=== PATIENT | female | born 1945 | race Hispanic/Latino ===

== ENCOUNTER 2019-02-21 11:44 | Emergency (ER) | payer MEDICARE ==
[~2019-02-21] VITALS: Ht 165.1 cm; Wt 96.6 kg
[~2019-02-21 11:44] MED LIST: AMIODARONE HCL200 MG PO; ASPIR-LOW81 MG PO; ASPIR-TRIN325 MG PO; ATENOLOL100 MG PO; ATORVASTATIN CA20 MG PO; CETIRIZINE HCL10 MG PO; COZAAR100 MG PO; DIGOXIN250 MCG PO; FAMOTIDINE20 MG PO; FUROSEMIDE40 MG PO; GARLIC1000 MG PO; JANUMET 50-5001 EACH PO; METOPROLOL SUCC50 MG PO; ULTRACET TABLE1 EACH PO
[2019-02-21] MEDS ORDERED: SODIUM CHLORIDE 0.9% 500ML 500 ML IV STA (11:54)
[2019-02-21] MEDS ORDERED: MORPHINE SULFATE INJ 4 MG/ML INJ 1ML IV STA (11:54)
[2019-02-21] MEDS ORDERED: ONDANSETRON HCL INJ 2MG/ML 2ML 2 MG/ML VIAL IV STA (11:54)
[2019-02-21 12:14] LABS: BASOPHILS # (AUTO) 0.1 (0.0-0.1); BASOPHILS % 0.7 % (0.0-1.0); EOSINOPHILS % 0.4 % (0.0-6.0); HEMATOCRIT 37.8 % (34.2-44.1); HEMOGLOBIN 12.4 g/dL (12.0-16.0); LYMPHOCYTES # (AUTO) 0.5 (1.0-3.2); LYMPHOCYTES % 7.2 % (18.0-39.1); MEAN CORPUSCULAR HEMOGLOBIN 29.1 pg (28-32); MEAN CORPUSCULAR HGB CONC 32.8 g/dL (31-35); MEAN CORPUSCULAR VOLUME 88.7 fL (81-99); MONOCYTES # (AUTO) 0.7 (0.2-0.8); MONOCYTES % 10.1 % (4.4-11.3); NEUTROPHILS # (AUTO) 5.6 (2.1-6.9); NEUTROPHILS % 81.2 % (38.7-80.0); PLATELET COUNT 158 x10e3/uL (140-360); RED BLOOD COUNT 4.26 x10e6/uL (3.6-5.1); RED CELL DISTRIBUTION WIDTH 14.7 % (11.7-14.4)
[2019-02-21] MEDS ORDERED: IBUPROFEN 600 MG TAB PO STA (12:15)
[2019-02-21] MEDS ORDERED: ACETAMINOPHEN 325 MG TAB PO ONE (12:15)
[2019-02-21] MEDS ORDERED: IBUPROFEN 600 MG TAB ONE (12:23)
[2019-02-21 12:29] LABS: BILIRUBIN,URINE NEGATIVE (NEGATIVE); CLARITY,URINE SL CLOUDY (CLEAR); COLOR,URINE YELLOW (YELLOW); KETONES,URINE NEGATIVE (NEGATIVE); LEUKOCYTE ESTERASE ,URINE NEGATIVE (NEGATIVE); NITRITE,URINE NEGATIVE (NEGATIVE); PROTEIN,URINE DIPSTICK NEGATIVE (NEGATIVE); URINE UROBILINOGEN 0.2 mg/dL (0.2 - 1)
[2019-02-21 12:39] LABS: ALANINE AMINOTRANSFERASE 30 IU/L (0-55); ALBUMIN 3.8 g/dL (3.5-5.0); ALBUMIN/GLOBULIN RATIO 1.1 (0.8-2.0); ALKALINE PHOSPHATASE 56 IU/L (40-150); BLOOD UREA NITROGEN 17 mg/dL (7-26); BUN/CREATININE RATIO 19 (6-25); CALCIUM 9.5 mg/dL (8.4-10.2); CHLORIDE 102 mmol/L (98-107); CREATININE, SERUM 0.88 mg/dL (0.57-1.11); EST GLOMERULAR FILTRATION RATE > 60 ML/MIN (60-); GLUCOSE 123 mg/dL (74-118); POTASSIUM 4.2 mmol/L (3.5-5.1); SODIUM 137 mmol/L (136-145)
[2019-02-21 12:50] LABS: ANION GAP 16.2 mmol/L (8-16); CARBON DIOXIDE 23 mmol/L (22-29)
[2019-02-21 12:53] LABS: BACTERIA,URINE FEW /HPF; EPITHELIAL CELLS,URINE FEW /LPF; RBC,URINE 0-5 /HPF (0-5); WBC,URINE (MAN) 0-5 /HPF (0-5)
--- NOTE | 2019-02-21 13:10 | Diagnostic Imaging Report ---
EXAM: CT Abdomen and Pelvis WITHOUT intravenous contrast INDICATION: Flank pain COMPARISON: None. TECHNIQUE: Abdomen and pelvis were scanned utilizing a multidetector helical scanner from the lung base to the pubic symphysis without administration of IV contrast. Coronal and sagittal reformations were obtained. IV CONTRAST: None ORAL CONTRAST: Water COMPLICATIONS: None RADIATION DOSE: Total DLP: 747.3 mGy*cm Dose modulation, iterative reconstruction, and/or weight based adjustment of the mA/kV was utilized to reduce the radiation dose to as low as reasonably achievable. FINDINGS: LOWER THORAX: Mild smooth interlobular septal thickening compatible with mild interstitial edema. Pacemaker leads partially visualized. HEPATOBILIARY: No focal hepatic lesions. No biliary ductal dilatation. The gallbladder appears unremarkable. SPLEEN: No splenomegaly. PANCREAS: No focal masses or ductal dilatation. ADRENALS: No adrenal nodules. KIDNEYS/URETERS: No hydronephrosis, stones, or solid mass lesions. PELVIC ORGANS/BLADDER: Unremarkable. PERITONEUM / RETROPERITONEUM: No free air or fluid. LYMPH NODES: No lymphadenopathy. VESSELS: Scattered atherosclerotic calcifications of the nonaneurysmal abdominal aorta and major branches. GI TRACT: No abnormal bowel thickening. No bowel obstruction. Status post appendectomy. BONES AND SOFT TISSUES: No acute osseous injury. No suspicious lytic or blastic lesions. IMPRESSION: No acute findings in the abdomen or pelvis. Specifically, no renal calculi or hydronephrosis. Mild interstitial pulmonary edema. Signed by: Luma Huff MD on 02/21/2019 1:07 PM
--- NOTE | 2019-02-21 14:13 | NUR ---
pending results of flu at this time.
--- NOTE | 2019-02-21 14:35 | NUR ---
Juan GRIGSBY IN TO DISCUSS DC WITH PT/FAMILY.
== END 2019-02-21 15:00 | disposition home or self-care (01) ==
LOC: ER 11:44
DX: R30.0 Dysuria (principal); R10.2 Pelvic and perineal pain; J11.1 Influenza due to unidentified influenza virus with other respiratory manifestations; I10 Essential (primary) hypertension; E11.9 Type 2 diabetes mellitus without complications; K21.9 Gastro-esophageal reflux disease without esophagitis; Z95.0 Presence of cardiac pacemaker
CPT/HCPCS: 36415; 74176; 80053; 81001; 85025; 87086; 87400; 99284; J7040

== ENCOUNTER → 2019-03-07 | Outpatient (CLI) | payer MEDICARE ==
[~2019-03-07] MED LIST changes: +FUROSEMIDE INJ 10 MG/ML 4 ML VIAL ONE
--- NOTE | 2019-03-07 12:55 | Diagnostic Imaging Report ---
Abdomen, one view Clinical indication: Kidney calculus Comparison: CT of the abdomen and pelvis performed 02/25/2019 Findings: No renal calculi are identified. The bowel gas pattern is nonobstructive. No acute osseous abnormalities. Impression: No renal calculi identified. Signed by: Brandon Cash MD on 03/07/2019 12:51 PM
--- NOTE | 2019-03-07 15:53 | Diagnostic Imaging Report ---
Renal Scan with Lasix Washout Clinical information: N13.30: Hydronephrosis, unspecified; N20.0: Calculus of kidney Technique: Following intravenous administration of 10 mCi of Tc-99m MAG3, dynamic images of the kidneys in the posterior projection were obtained through 40 minutes. Lasix 40 mg was administered intravenously at 10 minutes post injection of the tracer. Report: Left kidney: Perfusion of the left kidney is prompt. The kidney has a reniform shape but is overall reduced in size. Extraction of tracer from the blood pool is decreased. Clearance of tracer from the renal parenchyma begins promptly but is not complete by the end of the study. The pelvicalyceal system is not dilated. No pooling of tracer is seen within the pelvicalyceal system. Drainage of tracer from the pelvicalyceal system is adequate prior to administration of Lasix. No significant stasis of tracer is seen within the left ureter. Right kidney: Perfusion of the Right kidney is prompt. The kidney has a reniform shape but is overall reduced in size. Extraction of tracer from the blood pool is decreased. Clearance of tracer from the renal parenchyma begins promptly but is not complete by the end of the study. The pelvicalyceal system is not dilated. No pooling of tracer is seen within the pelvicalyceal system. Drainage of tracer from the pelvicalyceal system is adequate prior to administration of Lasix. No significant stasis of tracer is seen within the right ureter. Differential renal function: The left kidney contributes 47% of total renal function and the right kidney contributes 53% (normal 43-57%). Impression: 1. Scan evidence of moderate to severe medical renal disease in the left kidney. No hydronephrosis is present. No physiologically significant obstruction of the renal collecting system is present. 2. Scan evidence of moderate to severe medical renal disease in the right kidney. No hydronephrosis is present. No physiologically significant obstruction of the renal collecting system is present. 3. The differential renal function is preserved. Signed by: Dr. Neetu Shahid M.D. on 03/07/2019 3:50 PM
== END ==
LOC: NM 11:11
PROVIDERS: ATTEND Urology
DX: N13.30 Unspecified hydronephrosis (principal); N20.0 Calculus of kidney
CPT/HCPCS: 74018; 78708; A9562; J1940

== ENCOUNTER → 2020-04-16 | Day surgery (SDC) | payer MEDICARE ==
[2020-04-11 10:50] LABS: BASOPHILS # (AUTO) 0.1 (0.0-0.1); BASOPHILS % 0.9 % (0.0-1.0); EOSINOPHILS # (AUTO) 0.2 (0.0-0.4); EOSINOPHILS % 2.9 % (0.0-6.0); HEMATOCRIT 42.7 % (34.2-44.1); HEMOGLOBIN 13.2 g/dL (12.0-16.0); LYMPHOCYTES # (AUTO) 1.6 (1.0-3.2); MEAN CORPUSCULAR HEMOGLOBIN 28.3 pg (28-32); MEAN CORPUSCULAR HGB CONC 30.9 g/dL (31-35); MEAN CORPUSCULAR VOLUME 91.4 fL (81-99); MONOCYTES # (AUTO) 0.5 (0.2-0.8); MONOCYTES % 6.2 % (4.4-11.3); NEUTROPHILS # (AUTO) 5.6 (2.1-6.9); NEUTROPHILS % 69.8 % (38.7-80.0); PLATELET COUNT 212 x10e3/uL (140-360); RED BLOOD COUNT 4.67 x10e6/uL (3.6-5.1)
[2020-04-11 11:10] LABS: INR 1.13; PROTHROMBIN TIME 15.2 seconds (11.9-14.5)
[2020-04-11 11:17] LABS: ALBUMIN 3.8 g/dL (3.5-5.0); ALBUMIN/GLOBULIN RATIO 1.2 (0.8-2.0); ANION GAP 13.3 mmol/L (8-16); CALCIUM 8.9 mg/dL (8.4-10.2); CREATININE, SERUM 0.96 mg/dL (0.57-1.11); POTASSIUM 4.3 mmol/L (3.5-5.1)
[~2020-04-16] VITALS: Ht 152.4 cm; Wt 82.6 kg
[~2020-04-16] MED LIST changes: +AMLODIPINE BESYL5 MG PO; +BENZOCAINE 20% SPR 60 ML CAN ONE; +ELIQUIS5 MG PO; -FUROSEMIDE INJ 10 MG/ML 4 ML VIAL ONE; +GLIMEPIRIDE2 MG PO; +JANUVIA100 MG PO; +LIDOCAINE HCL 2% LOCAL INJ 5 ML SDV VIAL INJ ONE; +METFORMIN HCL500 MG PO; +OMEPRAZOLE40 MG PO; +PROPOFOL IV EMULSION 10 MG/ML 20 ML VIAL ONE; +SODIUM CHLORIDE 0.9% 1000ML 1,000 ML ONE; +VITAMIN C500 M4 PO
[2020-04-16 11:15] VITALS: BP 117/67
[2020-04-16 11:30] VITALS: BP 106/73
[2020-04-16 11:45] VITALS: BP 115/57
[2020-04-16 12:00] VITALS: BP 113/70
== END | disposition home or self-care (01) ==
LOC: CATH LAB 09:14
PROVIDERS: ATTEND Internal Medicine Cardiovascular Disease
DX: I48.0 Paroxysmal atrial fibrillation (principal); R07.2 Precordial pain; I10 Essential (primary) hypertension; E78.5 Hyperlipidemia, unspecified; Z95.0 Presence of cardiac pacemaker; E11.9 Type 2 diabetes mellitus without complications; Z88.8 Allergy status to other drugs, medicaments and biological substances; Z01.812 Encounter for preprocedural laboratory examination; Z20.822 Contact with and (suspected) exposure to COVID-19; Z79.84 Long term (current) use of oral hypoglycemic drugs; Z79.02 Long term (current) use of antithrombotics/antiplatelets; Z79.82 Long term (current) use of aspirin; Z68.38 Body mass index [BMI] 38.0-38.9, adult; Z82.49 Family history of ischemic heart disease and other diseases of the circulatory system
CPT/HCPCS: 36415; 80053; 85025; 85610; 93320; 93325; J2001; J2704; J7030; U0002; 93307; 93312

== ENCOUNTER 2020-04-28 17:10 | Emergency (ER) | payer MEDICARE ==
[~2020-04-28] VITALS: Ht 165.1 cm; Wt 82.6 kg
[~2020-04-28 17:10] MED LIST changes: -BENZOCAINE 20% SPR 60 ML CAN ONE; -LIDOCAINE HCL 2% LOCAL INJ 5 ML SDV VIAL INJ ONE; -PROPOFOL IV EMULSION 10 MG/ML 20 ML VIAL ONE; -SODIUM CHLORIDE 0.9% 1000ML 1,000 ML ONE
[2020-04-28] MEDS ORDERED: BAMLANIVIMAB 700 MG in SODIUM CHLORIDE 0.9% 250ML 250 ML IV ONE (18:30)
== END 2020-04-28 21:52 | disposition home or self-care (01) ==
LOC: ER 17:57
DX: U07.1 COVID-19 (principal); I10 Essential (primary) hypertension; E11.9 Type 2 diabetes mellitus without complications; I48.91 Unspecified atrial fibrillation; E78.5 Hyperlipidemia, unspecified; K21.9 Gastro-esophageal reflux disease without esophagitis; Z88.8 Allergy status to other drugs, medicaments and biological substances; Z79.02 Long term (current) use of antithrombotics/antiplatelets; Z79.84 Long term (current) use of oral hypoglycemic drugs; Z79.82 Long term (current) use of aspirin; Z95.810 Presence of automatic (implantable) cardiac defibrillator
CPT/HCPCS: 99283; J7050

== ENCOUNTER 2020-05-09 19:56 | Emergency (ER) | payer MEDICARE ==
[~2020-05-09] VITALS: Ht 165.1 cm; Wt 82.6 kg
[2020-05-09 20:42] LABS: BASOPHILS # (AUTO) 0.1 (0.0-0.1); BASOPHILS % 0.7 % (0.0-1.0); EOSINOPHILS # (AUTO) 0.2 (0.0-0.4); EOSINOPHILS % 2.7 % (0.0-6.0); HEMATOCRIT 34.4 % (34.2-44.1); HEMOGLOBIN 10.9 g/dL (12.0-16.0); LYMPHOCYTES # (AUTO) 1.8 (1.0-3.2); LYMPHOCYTES % 22.1 % (18.0-39.1); MEAN CORPUSCULAR HEMOGLOBIN 27.4 pg (28-32); MEAN CORPUSCULAR HGB CONC 31.7 g/dL (31-35); MEAN CORPUSCULAR VOLUME 86.4 fL (81-99); MONOCYTES # (AUTO) 0.7 (0.2-0.8); MONOCYTES % 8.6 % (4.4-11.3); NEUTROPHILS # (AUTO) 5.4 (2.1-6.9); NEUTROPHILS % 65.5 % (38.7-80.0); PLATELET COUNT 406 x10e3/uL (140-360); RED BLOOD COUNT 3.98 x10e6/uL (3.6-5.1); RED CELL DISTRIBUTION WIDTH 15.1 % (11.7-14.4)
[2020-05-09 20:58] LABS: ALBUMIN 3.4 g/dL (3.5-5.0); ALBUMIN/GLOBULIN RATIO 0.9 (0.8-2.0); ANION GAP 16.2 mmol/L (8-16); CALCIUM 9.3 mg/dL (8.4-10.2); CREATININE, SERUM 1.07 mg/dL (0.57-1.11); POTASSIUM 4.2 mmol/L (3.5-5.1)
== END 2020-05-09 21:57 | disposition home or self-care (01) ==
LOC: ER 20:08
DX: F41.8 Other specified anxiety disorders (principal); U07.1 COVID-19; Z88.8 Allergy status to other drugs, medicaments and biological substances; Z79.02 Long term (current) use of antithrombotics/antiplatelets; Z79.84 Long term (current) use of oral hypoglycemic drugs; Z79.82 Long term (current) use of aspirin
CPT/HCPCS: 36415; 80053; 83735; 85025; 99283